=== PATIENT | male | born 1990 | race Caucasian/White ===

== ENCOUNTER 2017-02-02 17:55 | Emergency (ER) | payer BC, OTHER ==
[~2017-02-02] VITALS: Ht 190.5 cm; Wt 93.0 kg
[~2017-02-02 17:55] MED LIST: CIAL5TAB PO
[2017-02-02 18:02] VITALS: BP 143/79; PULSE 86; RESP 15; TEMP 98.6; O2SAT 98
--- NOTE | 2017-02-02 18:42 | PD ---
Physical Exam Date Seen by Provider: Feb 02, 2017 Time Seen by Provider: 18:40 Narrative 26 yo male that comes here for nasal abscess. Was diagnosed in mid January. Given bactrim. Just came back from a trip and it seemed to come back today. Drainage. Possible history of MRSA. per patient it feels similar. Pain is 3/10. Vitals are stable. Awaiting bed placement. Data Data Last Documented VS Vital Signs Date Time Temp Pulse Resp B/P Pulse Ox O2 Delivery O2 Flow Rate FiO2 02/02/17 18:02 98.6 86 15 143/79 98 MDM Medical Record Reviewed: Yes Supervised Visit with THERESE: No Martin Polanco Feb 02, 2017 18:42
[2017-02-02] MEDS ORDERED: CLIN1CAP5 PO (19:59)
--- NOTE | 2017-02-02 19:59 | PD ---
HPI Chief Complaint: ENT Complaint Time Seen by Provider: 19:44 Travel History International Travel<30 days: No Contact w/Intl Traveler<30days: No Traveled to known affect area: No History of Present Illness HPI 26-year-old male here for evaluation of possible nasal abscess. The patient reports that he was diagnosed with a nasal abscess a couple weeks ago [place] He was started on Bactrim and states that his symptoms improved. Symptoms returned about 2-3 days ago and feel very similar. He denies trauma. He has been having some nasal drainage which she states is foul-smelling. He also reports having fevers. He is able to breathe through his nose. Denies history of IVDU. [facility] Social History Alcohol Use: No Tobacco Use: No Substance Use: No Allergies-Medications (Allergen,Severity, Reaction): Coded Allergies: No Known Allergies (Verified , 02/02/17) Reported Meds & Prescriptions Reported Meds & Active Scripts Active Cialis (Tadalafil) 5 Mg Tab 5 Mg PO DAILY Review of Systems Except as stated in HPI: all other systems reviewed are Neg Physical Exam Narrative GENERAL: Well-developed, well-nourished, comfortable, no acute distress. SKIN: Focused skin assessment warm/dry. HEAD: Atraumatic. Normocephalic. EYES: Pupils equal and round. No scleral icterus. No injection or drainage. ENT: Relatively unremarkable exam. No nasal septal hematoma. Normal nasal mucosa. No purulent drainage. There is mild erythema to the tip of the patient 's nose which is tender. No fluctuance. No induration. PSYCHIATRIC: Appropriate mood and affect; insight and judgment normal. Data Data Last Documented VS Vital Signs Date Time Temp Pulse Resp B/P Pulse Ox O2 Delivery O2 Flow Rate FiO2 02/02/17 18:02 98.6 86 15 143/79 98 Orders Mrsa Screen (02/02/17 19:52) [facility] Medical Decision Making Medical Screen Exam Complete: Yes Emergency Medical Condition: Yes Differential Diagnosis Nasal abscess, nasal cellulitis Narrative Course Vital signs show heart rate 86, blood pressure 143/79, pulse ox 98% on room air , oral temp of 98.6 Fahrenheit. Patient's nasal exam is relatively unremarkable. Does have some tenderness of the tip of his nose with mild erythema. There is no nasal septal hematoma. No purulent drainage. No induration or fluctuance. Patient reports similar symptoms to when he was told he had a nasal abscess 2 weeks ago. The symptoms resolved with Bactrim. Patient's friend who is in the room is requesting nasal culture for MRSA. Plan is to start the patient on clindamycin and have him follow-up with a primary care physician as well as an ENT physician this week. He was informed on when to return to the emergency department. He verbalizes understanding and agreement with plan. Diagnosis Primary Impression: Cellulitis of nasal tip Referrals: Efrain Benítez MD 3 days ENT Primary Care Physician 3 days Additional Instructions: Follow-up with a primary care physician this week. Follow-up with ENT physician Dr. Benítez or an ENT physician of your choice this week. Return to the emergency department for worsening symptoms or any other concerns. Scripts Clindamycin 150 Mg [id number] Mg PO Q6H 7 Days Ref 0 Prov:Miller Harry MD 02/02/17 Disposition: 01 DISCHARGE HOME Condition: Stable Milelr Harry MD Feb 02, 2017 19:59
[2017-02-02] MEDS ORDERED: CLINDAMYCIN 150 MG CAP PO ONE (20:00)
[2017-02-02] MEDS ORDERED: CIAL5TAB PO (20:08)
== END 2017-02-02 20:27 | disposition home or self-care (01) ==
LOC: NEPD 17:55
DX: J34.0 Abscess, furuncle and carbuncle of nose (principal)
CPT/HCPCS: 87641; 99283